=== PATIENT | male | born 1975 | race Caucasian/White ===

== ENCOUNTER 2019-04-23 14:39 | Outpatient (CLI) | payer SELFPAY | END 2019-04-23 14:40 | disposition EMS.NT | LOC: EMS 14:39 | PROVIDERS: ATTEND Surgery | DX: S61.401A Unspecified open wound of right hand, initial encounter (principal); W23.0XXA Caught, crushed, jammed, or pinched between moving objects, initial encounter; Y92.007 Garden or yard of unspecified non-institutional (private) residence as the place of occurrence of the external cause; Y99.0 Civilian activity done for income or pay ==

== ENCOUNTER 2019-04-23 15:22 | Emergency (ER) | payer MEDICAID, OTHER ==
[2019-04-23 15:33] VITALS: BP 151/88
--- NOTE | 2019-04-23 15:46 | ED Physician Documentation ---
PD HPI UPPER EXT INJURY - Stated complaint Stated Complaint: R HAND INJURY - Chief complaint Chief Complaint: Laceration - History obtained from History obtained from: Patient, Family - History of Present Illness Location: Right, Hand Type of injury: Fall, Laceration Where injury occurred: Work Timing - duration: Minutes Timing - details: Abrupt onset, Still present Improved by: Rest, Immobilization Worsened by: Moving, Palpating Associated symptoms: Weakness (cant move 5th digit and distal portion is numb), Numbness. No: Tingling, Swelling Contributing factors: No: Anticoagulated Similar symptoms before: Has not had sx before Recently seen: Not recently seen - Additonal information Additional information: 43-year old male was carrying a board at work that had a metal edge on it and he fell on soft ground and hit the dorsal surface of his hand on a rock and lacerated the palmar surface of fingers 2 through 5. The deepest laceration is over the fifth digit over the middle phalange and the patient is complaining of numbness distally to this and inability to flex and extend the finger. Review of Systems Constitutional: denies: Fever Eyes: denies: Decreased vision, Photophobia Ears: denies: Ear pain Nose: denies: Congestion Throat: denies: Sore throat Respiratory: denies: Cough GI: denies: Vomiting PD PAST MEDICAL HISTORY - Past Surgical History Past Surgical History: Yes HEENT: Myringotomy (tubes) - Present Medications Home Medications: Ambulatory Orders Medication Instructions Recorded Confirmed Oxycodone HCl/Acetaminophen 1 - 2 each PO Q6H PRN #15 tablet 06/07/15 [Percocet 5-325 mg Tablet] cephALEXin [Cephalexin] 500 mg PO TID #20 capsule 06/07/15 - Allergies Allergies/Adverse Reactions: Allergies Allergy/AdvReac Type Severity Reaction Status Date / Time amoxicillin Allergy Intermediate diarrhea Verified 04/23/19 15:30 erythromycin base Allergy Intermediate allergy Verified 04/23/19 15:30 Penicillins Allergy Intermediate diarrhea Verified 04/23/19 15:30 diphenhydramine HCl * AdvReac Intermediate Rash Verified 04/23/19 15:30 [From Benadryl] - Social History Does the pt smoke?: Yes Smoking Status: Current every day smoker Does the pt drink ETOH?: No Does the pt have substance abuse?: No - Immunizations Immunizations are current?: Yes - POLST Patient has POLST: No PD ED PE NORMAL - Vitals Vital signs reviewed: Yes (tachy and hypertensive ) - General General: Alert and oriented X 3, No acute distress, Well developed/nourished - HEENT HEENT: Atraumatic, PERRL, EOMI - Respiratory Respiratory: No respiratory distress - Derm Derm: Normal color, Warm and dry, No rash - Extremities Extremities: No deformity, Other (The patient is holding the right hand with the fingers partially flexed and the 5th digit flexed more than the rest. There are abrasions with underlying ecchymosis to the palmar surface of each of the fi ngers on the right hand. The deepest laceration is on the 5th digit over the middle phlange. The index is barely involved. There is injury to the dorsal surface as well worse on the 5th digit. He is able to flex and extend but slowly and with some pain. ) - Neuro Neuro: Alert and oriented X 3, bottom liner 2-12 intact, No motor deficit, No sensory deficit, Normal speech Eye Opening: Spontaneous Motor: Obeys Commands Verbal: Oriented GCS Score: 15 - Psych Psych: Normal mood, Normal affect Results - Vitals Vitals: Vital Signs - 24 hr 04/23/19 15:26 Temperature 36.8 C Heart Rate 101 H Respiratory 17 Rate Blood Pressure 151/88 H O2 Saturation 99 Oxygen O2 Source Room air - Rads (name of study) hand Radiology: Prelim report reviewed (Impression: No evidence of fracture or disloc ation.), EMP read indepedently, See rad report Procedures - Laceration (location) 5th digit R Length in cm: 2 Wound type: Linear, Into subcut fat, Clean Neurovascular status: Sensory intact, Motor intact, Vascular intact Tendon involvement: Tendon intact Anesthesia: Lidocaine 1%, With bicarb Wound Preparation: Hibiclens, Irrigated copiously NS, Wound explored, To the base Skin layer closure: Nylon, Dermabond (to dorsal surface of #2-4), Interrupted, Size #-0 - enter number (4-0), Sutures - enter # (4) Other: Patient tolerated well, No complications, Neurovascular intact, Dressing applied, Tetanus UTD PD MEDICAL DECISION MAKING - ED course Complexity details: reviewed results, re-evaluated patient, considered differential, d/w patient, d/w family ED course: 43-year-old male with a laceration to the palmar surface of the fifth digit and abrasions to the other digits both palmar and dorsal is sutured the superficial wounds on the dorsal surface of the fingers are also closed with Dermabond. He is placed into an ulnar gutter splint for comfort. Departure - Departure Disposition: 01 Home, Self Care Clinical Impression: Finger laceration Qualifiers: Encounter type: initial encounter Finger: little finger Damage to nail status: without damage Foreign body presence: without foreign body Laterality: right Qualified Code(s): S61.216A - Laceration without foreign body of right little finger without damage to nail, initial encounter Contusion of right hand including fingers Qualifiers: Encounter type: initial encounter Qualified Code(s): S60.221A - Contusion of right hand, initial encounter Condition: Stable Instructions: ED Contusion Hand, ED Laceration Hand Follow-Up: [facility] [Provider Group] Comments: sutures should be removed in 7-10 days
[2019-04-23] MEDS ORDERED: BUFFERED LIDOCAINE 10 ML SYRINGE SUBQ STA (15:49)
--- NOTE | 2019-04-23 16:18 | XRAY Report ---
Reason: deep 5th digit lac crush injury Procedure Date: 04/23/2019 Accession Number: [id number] / [id number] Procedure: XR - Hand 3 View RT CPT Code: FULL RESULT: EXAM: RIGHT HAND RADIOGRAPHY EXAM DATE: 04/23/2019 03:55 PM. CLINICAL HISTORY: Deep 5th digit lac crush injury. COMPARISON: None. TECHNIQUE: 3 views. FINDINGS: Bones: No fracture or focal bony lesion. Joints: No evidence of dislocation. Soft Tissues: No unexpected soft tissue findings. IMPRESSION: No evidence of fracture or dislocation. [facility]
== END 2019-04-23 16:54 | disposition home or self-care (01) ==
LOC: ED 15:22
DX: S61.216A Laceration without foreign body of right little finger without damage to nail, initial encounter (principal); S60.221A Contusion of right hand, initial encounter; W01.0XXA Fall on same level from slipping, tripping and stumbling without subsequent striking against object, initial encounter; W26.8XXA Contact with other sharp object(s), not elsewhere classified, initial encounter; Y93.H3 Activity, building and construction; Y92.89 Other specified places as the place of occurrence of the external cause; Y99.0 Civilian activity done for income or pay; F17.200 Nicotine dependence, unspecified, uncomplicated
CPT/HCPCS: 1040M; 12001; 73130; 99282; 99283